=== PATIENT | female | born 1980 | race Caucasian/White ===

== ENCOUNTER 2018-12-03 11:44 | Emergency (ER) | payer MEDICAID, OTHER ==
[~2018-12-03] VITALS: Ht 157.5 cm; Wt 81.6 kg
--- NOTE | 2018-12-03 12:04 | NUR ---
NIKKO ULLOA AT BEDSIDE FOR MSE.
[2018-12-03] MEDS ORDERED: predniSONE 50 MG TABLET PO ONE (12:15)
[2018-12-03] MEDS ORDERED: SULFAMETH/TRIMETH 800/160 MG TABLET PO ONE (12:15)
[2018-12-03] MEDS ORDERED: predniSONE 50 MG TABLET ONE (12:18)
[2018-12-03] MEDS ORDERED: SULFAMETH/TRIMETH 800/160 MG TABLET ONE (12:18)
--- NOTE | 2018-12-03 12:22 | NUR ---
Patient discharged to home in stable conditon. Written and verbal after care instructions given. Patient verbalizes understanding of instructions. ALL BELONGINGS W/ PT. PT SELF-AMBULATED W/O DIFFICULTY.
[2018-12-03 12:23] VITALS: BP 152/91
== END 2018-12-03 12:24 | disposition home or self-care (01) ==
LOC: ER 11:44
DX: S30.861A Insect bite (nonvenomous) of abdominal wall, initial encounter (principal); S90.862A Insect bite (nonvenomous), left foot, initial encounter; S90.861A Insect bite (nonvenomous), right foot, initial encounter; W57.XXXA Bitten or stung by nonvenomous insect and other nonvenomous arthropods, initial encounter; Y93.89 Activity, other specified; Y92.89 Other specified places as the place of occurrence of the external cause; Y99.8 Other external cause status
CPT/HCPCS: 99283; J7512; A4663

== ENCOUNTER 2018-12-21 16:39 | Emergency (ER) | payer OTHER, BC ==
[~2018-12-21] VITALS: Ht 154.9 cm; Wt 81.6 kg
--- NOTE | 2018-12-21 17:23 | NUR ---
Dr Trejo at the bedside for MSE.
[2018-12-21 17:41] VITALS: BP 150/90
--- NOTE | 2018-12-21 17:42 | NUR ---
Patient discharged to home in stable conditon. Written and verbal after care instructions given. Patient verbalizes understanding of instructions.
== END 2018-12-21 17:43 | disposition home or self-care (01) ==
LOC: ER 16:39
DX: S30.861D Insect bite (nonvenomous) of abdominal wall, subsequent encounter (principal); S70.361D Insect bite (nonvenomous), right thigh, subsequent encounter; Z86.2 Personal history of diseases of the blood and blood-forming organs and certain disorders involving the immune mechanism; W57.XXXD Bitten or stung by nonvenomous insect and other nonvenomous arthropods, subsequent encounter
CPT/HCPCS: A4663